=== PATIENT | female | born 1960 | race Caucasian/White ===

== ENCOUNTER → 2016-07-29 | Outpatient (CLI) | payer OTHER ==
--- NOTE | 2016-07-29 13:00 | DX ---
Left Foot, 3 Views, at 11:48 a.m. Clinical History: 56-year-old female who rolled her left foot while walking yesterday, complaining of pain over the 5th tarsometatarsal area. ICD-10 Diagnostic Code: M79.672. Findings: Bone mineralization is preserved. There is a mild hallux valgus configuration. There is a bipartite medial great toe sesamoid bone and a tripartite lateral great toe sesamoid bone. There is a n unfused os peroneum along the lateral midfoot,and an old avulsion fragment off of the medial malleo ta. With reference to the lateral tarsometatarsal anatomy, there is no acute fracture or malalignmen t. There is a tiny posterior calcaneal enthesophyte where the Achilles tendon inserts. Impression: No acute osseous abnormality. If there is progression of the patient's symptoms and concern regarding a peroneal tendinopathy or pa rtial tear, MR imaging could be considered.
== END ==
LOC: BRMIMAGING 11:44
PROVIDERS: ATTEND Physician Assistant
DX: M79.672 Pain in left foot (principal)
CPT/HCPCS: 73630-PO

== ENCOUNTER → 2017-03-14 | Outpatient (CLI) | payer OTHER | LOC: BRMIMAGING 10:39 | PROVIDERS: ATTEND Family Medicine | DX: Z12.31 Encounter for screening mammogram for malignant neoplasm of breast (principal) | CPT/HCPCS: G0202 ==